=== PATIENT | female | born 1960 | race Two or more races ===

== ENCOUNTER 2017-05-01 09:24 | Outpatient (CLI) | payer OTHER | END 2017-05-01 09:32 | disposition home or self-care (01) | LOC: LAB 09:24 | DX: L68.0 Hirsutism (principal); N91.1 Secondary amenorrhea; D50.8 Other iron deficiency anemias ==

== ENCOUNTER 2017-05-07 09:09 | Outpatient (CLI) | payer OTHER | END 2017-05-07 09:16 | disposition home or self-care (01) | LOC: NUCLEAR 09:09 | DX: M79.89 Other specified soft tissue disorders (principal); M79.629 Pain in unspecified upper arm ==

== ENCOUNTER → 2017-05-11 | Outpatient (CLI) | payer OTHER | END | disposition home or self-care (01) | LOC: NUCLEAR 09:57 | DX: M79.89 Other specified soft tissue disorders (principal); M79.629 Pain in unspecified upper arm; I73.9 Peripheral vascular disease, unspecified ==

== ENCOUNTER 2017-07-12 08:36 | Outpatient (CLI) | payer OTHER | END 2017-07-12 09:11 | disposition home or self-care (01) | LOC: LAB 08:36 | DX: M06.4 Inflammatory polyarthropathy (principal); E55.9 Vitamin D deficiency, unspecified ==

== ENCOUNTER 2017-07-12 08:40 | Outpatient (CLI) | payer OTHER | END 2017-07-12 09:09 | disposition home or self-care (01) | LOC: RAD 08:40 | DX: M50.80 Other cervical disc disorders, unspecified cervical region (principal); M51.9 Unspecified thoracic, thoracolumbar and lumbosacral intervertebral disc disorder; M16.9 Osteoarthritis of hip, unspecified; M17.9 Osteoarthritis of knee, unspecified ==

== ENCOUNTER 2017-10-05 07:39 | Outpatient (CLI) | payer OTHER | END 2017-10-05 07:50 | disposition home or self-care (01) | LOC: LAB 07:39 | DX: C50.912 Malignant neoplasm of unspecified site of left female breast (principal); E55.9 Vitamin D deficiency, unspecified; C50.919 Malignant neoplasm of unspecified site of unspecified female breast; N60.12 Diffuse cystic mastopathy of left breast; N60.11 Diffuse cystic mastopathy of right breast; M89.9 Disorder of bone, unspecified; N95.2 Postmenopausal atrophic vaginitis; R97.1 Elevated cancer antigen 125 [CA 125]; N94.6 Dysmenorrhea, unspecified; M94.9 Disorder of cartilage, unspecified; D39.8 Neoplasm of uncertain behavior of other specified female genital organs; Z12.11 Encounter for screening for malignant neoplasm of colon; R10.84 Generalized abdominal pain; E21.4 Other specified disorders of parathyroid gland; E21.5 Disorder of parathyroid gland, unspecified; E83.59 Other disorders of calcium metabolism; E78.2 Mixed hyperlipidemia; E11.9 Type 2 diabetes mellitus without complications; R50.2 Drug induced fever; B33.8 Other specified viral diseases; B34.8 Other viral infections of unspecified site; I10 Essential (primary) hypertension; E03.8 Other specified hypothyroidism; N30.00 Acute cystitis without hematuria; N92.6 Irregular menstruation, unspecified; N93.9 Abnormal uterine and vaginal bleeding, unspecified; D64.89 Other specified anemias; D50.8 Other iron deficiency anemias; E83.32 Hereditary vitamin D-dependent rickets (type 1) (type 2); L68.0 Hirsutism ==

== ENCOUNTER → 2018-04-07 | Emergency (ER) | payer OTHER ==
[~2018-04-07] VITALS: Ht 157.5 cm; Wt 68.0 kg
[~2018-04-07] MED LIST: KETO10TA2 PO; TESSALON PERLE100 MG PO
== END | disposition home or self-care (01) ==
LOC: ER 14:41
DX: B34.9 Viral infection, unspecified (principal); J32.8 Other chronic sinusitis

== ENCOUNTER 2018-12-19 09:27 | Outpatient (CLI) | payer OTHER | END 2018-12-19 15:00 | disposition home or self-care (01) | LOC: LAB 09:27 | DX: C50.912 Malignant neoplasm of unspecified site of left female breast (principal) ==